=== PATIENT | female | born 1950 | race Caucasian/White ===

== ENCOUNTER 2016-08-13 08:19 | Day surgery (SDC) | payer MEDICARE, OTHER ==
[~2016-08-13] VITALS: Ht 160 cm; Wt 56.8 kg
[~2016-08-13 08:19] MED LIST: AMOX250C4 PO; CEFU250T87 PO; HYDR2 PO; LEVO100 PO; LIOT5 PO; LORazepam 2 MG/ML VIAL IVP ONE; MIRA50TA PO; TIZA4TAB4 PO; VALA500T38 PO
[2016-08-13] MEDS ORDERED: CeFAZolin 1 GM/DEXTROSE 50 ML IV ONE ×2 (08:52→11:30)
[2016-08-13] MEDS ORDERED: DEXTROSE 5%-0.45% SODIUM CHL 1,000 ML IV ONE ×2 (08:52→10:30)
[2016-08-13 09:13] LABS: EOSINOPHILS % (AUTO) 1.2 % (1.0-6.0); HEMATOCRIT 29.7 % (36-46); HEMOGLOBIN 9.5 g/dL (12.0-16.0); LYMPHOCYTES # (AUTO) 0.9 K/uL (1.0-4.8); LYMPHOCYTES % (AUTO) 7.1 % (22.0-44.0); MEAN CORPUSCULAR HEMOGLOBIN 27.3 pg (26.0-34.0); MEAN CORPUSCULAR VOLUME 85 fL (80-100); MONOCYTES % (AUTO) 7.7 % (2.0-9.0); NEUTROPHILS # (AUTO) 11.2 K/uL (1.8-7.7); PLATELET COUNT (AUTO) 389 K/uL (150-450); RED BLOOD CELL COUNT(AUTO) 3.48 MIL/uL (4.00-5.20); RED CELL DISTRIBUTION WIDTH 19.1 % (11.5-14.5); WHITE BLOOD COUNT (AUTO) 13.3 K/uL (4.5-11.0)
[2016-08-13 09:23] LABS: CALCIUM, TOTAL 10.2 mg/dL (8.8-10.5); CREATININE 1.16 mg/dL (0.60-1.30); POTASSIUM 4.5 mmol/L (3.5-5.1)
[2016-08-13 09:26] LABS: PROTHROMBIN TIME 10.4 SEC (9.4-11.6)
[2016-08-13] MEDS ORDERED: TIZA4TAB4 PO (09:28)
[2016-08-13] MEDS ORDERED: MIRA50TA PO (09:28)
[2016-08-13] MEDS ORDERED: OXYC-341 PO (09:28)
[2016-08-13] MEDS ORDERED: ROPI0.255 PO (09:28)
[2016-08-13] MEDS ORDERED: LORazepam 2 MG/ML VIAL ONE (12:34)
[2016-08-13] MEDS ORDERED: HEPARIN SODIUM 1000 UNITS/NS 500 ML ONE (14:05)
[2016-08-13] MEDS ORDERED: LIDOCAINE HCL/PF 1% 30 ML VIAL ONE (14:05)
[2016-08-13] MEDS ORDERED: MIDAZOLAM HCL 2 MG/2 ML VIAL ONE ×2 (14:05→15:40)
[2016-08-13] MEDS ORDERED: FentaNYL CITRATE-PF 100 MCG/2 ML VIAL ONE ×3 (14:05→15:40)
[2016-08-13] MEDS ORDERED: IODIXANOL 320 MG/ML 100 ML VIAL ONE (14:05)
[2016-08-13] MEDS ORDERED: IODIXANOL 320 MG/ML 50 ML VIAL ONE ×2 (14:49→15:22)
[2016-08-13] MEDS ORDERED: HYDROmorphone 2 MG/ML SYRINGE IVP ONE (15:45)
[2016-08-13] MEDS ORDERED: HYDROmorphone 2 MG/ML SYRINGE ONE (15:49)
[2016-08-13] MEDS ORDERED: MIDAZOLAM HCL 2 MG/2 ML VIAL IVP ONE (16:06)
[2016-08-13] MEDS ORDERED: FentaNYL CITRATE-PF 100 MCG/2 ML VIAL IVP ONE (16:06)
[2016-08-13] MEDS ORDERED: HYDROmorphone HCL 2 MG TABLET PO ONE (17:30)
[2016-09-10] MEDS ORDERED: LEVO100 PO (13:57)
[2016-09-10] MEDS ORDERED: HYDR2 PO (13:57)
[2016-09-10] MEDS ORDERED: CEFU250T87 PO (13:57)
[2016-09-10] MEDS ORDERED: LIOT5 PO (13:57)
[2016-09-10] MEDS ORDERED: AMOX250C4 PO (13:57)
[2016-09-10] MEDS ORDERED: VALA500T38 PO (13:57)
== END 2016-08-13 18:15 | disposition home or self-care (01) ==
LOC: SDS 08:19
PROVIDERS: ATTEND Radiology Diagnostic Radiology
DX: C67.9 Malignant neoplasm of bladder, unspecified (principal); Z88.8 Allergy status to other drugs, medicaments and biological substances; Z98.890 Other specified postprocedural states; Z96.89 Presence of other specified functional implants
CPT/HCPCS: 36247; 36415; 37243; 75736; 80048; 85025; 85610; 93005; C1760; C1769 ×2; C1887 ×3; C1892; J0690; J1170; J1644; J2060; J2250; J3010; J3490; Q9967 ×2; 36245; 75774; 77001

== ENCOUNTER 2016-08-15 06:18 | Day surgery (SDC) | payer MEDICARE, OTHER ==
[~2016-08-15] VITALS: Ht 160 cm; Wt 57.7 kg
[~2016-08-15 06:18] MED LIST changes: -AMOX250C4 PO; -CEFU250T87 PO; +FentaNYL CITRATE-PF 100 MCG/2 ML VIAL IVP ONE; -HYDR2 PO; +KETAMINE HCL 50 MG/ML 10 ML VIAL IVP ONE; -LEVO100 PO; +LIDOCAINE HCL/PF 2% 5 ML VIAL IM ONE; -LIOT5 PO; -LORazepam 2 MG/ML VIAL IVP ONE; +MIDAZOLAM HCL 2 MG/2 ML VIAL IVP ONE; +OXYC-341 PO; +ROPI0.255 PO; -VALA500T38 PO
[2016-08-15] MEDS ORDERED: DEXTROSE 5%-0.45% SODIUM CHL 1,000 ML IV ONE ×2 (06:29→06:30)
[2016-08-15] MEDS ORDERED: CeFAZolin 1 GM/DEXTROSE 50 ML IV ONE ×2 (06:30→07:29)
[2016-08-15] MEDS ORDERED: DEXTROSE 5%-0.45% SODIUM CHL 1,000 ML IV SCH (06:30)
[2016-08-15] MEDS ORDERED: LORazepam 2 MG/ML VIAL IVP ONE (06:30)
[2016-08-15] MEDS ORDERED: IOVERSOL 350 MG/ML 100 ML VIAL ONE (08:39)
[2016-08-15] MEDS ORDERED: SODIUM CHLORIDE 0.9% 100 ML ONE (08:39)
[2016-08-15] MEDS ORDERED: LIDOCAINE HCL/PF 1% 30 ML VIAL ONE (08:59)
[2016-08-15] MEDS ORDERED: HYDROmorphone HCL 2 MG TABLET PO ONE (11:15)
[2016-08-15] MEDS ORDERED: PROMETHAZINE HCL 25 MG TABLET PO ONE (11:15)
[2016-08-15] MEDS ORDERED: SODIUM CHLORIDE 0.9% 1,000 ML IV ONE (11:15)
[2016-08-15] MEDS ORDERED: NEOMYCIN/BACITRACIN/POLYMYXIN B OINTMENT PACKET TP ONE (14:00)
[2016-09-10] MEDS ORDERED: VALA500T38 PO (13:57)
[2016-09-10] MEDS ORDERED: LEVO100 PO (13:57)
[2016-09-10] MEDS ORDERED: LIOT5 PO (13:57)
[2016-09-10] MEDS ORDERED: CEFU250T87 PO (13:57)
[2016-09-10] MEDS ORDERED: AMOX250C4 PO (13:57)
[2016-09-10] MEDS ORDERED: HYDR2 PO (13:57)
== END 2016-08-15 14:15 | disposition home or self-care (01) ==
LOC: SDS 06:18 → EDSTATUS 08:00 → EDUNIT# 08:00 → SDS 14:15
PROVIDERS: ATTEND Radiology Diagnostic Radiology
DX: C76.3 Malignant neoplasm of pelvis (principal); C67.9 Malignant neoplasm of bladder, unspecified; D64.9 Anemia, unspecified; G89.29 Other chronic pain; F41.9 Anxiety disorder, unspecified; E03.9 Hypothyroidism, unspecified; Z72.89 Other problems related to lifestyle; Z88.0 Allergy status to penicillin; Z98.890 Other specified postprocedural states; Z96.89 Presence of other specified functional implants
CPT/HCPCS: 20983; J0690; J2250; J3010; J3490 ×3; J7050; Q9967; 72192; 76942; 77012

== ENCOUNTER 2016-09-11 05:54 | Day surgery (SDC) | payer MEDICARE, OTHER ==
[~2016-09-11] VITALS: Ht 157.5 cm; Wt 54.5 kg
[~2016-09-11 05:54] MED LIST changes: +AMOX250C4 PO; +CEFU250T87 PO; +HYDR2 PO; +LEVO100 PO; -LIDOCAINE HCL/PF 2% 5 ML VIAL IM ONE; +LIOT5 PO; -OXYC-341 PO; +VALA500T38 PO
[2016-09-11] MEDS ORDERED: SODIUM CHLORIDE 0.9% 1,000 ML IV ONE ×3 (06:09→10:30)
[2016-09-11] MEDS ORDERED: CeFAZolin 1 GM/DEXTROSE 50 ML IV ONE ×2 (06:09→08:00)
[2016-09-11] MEDS ORDERED: LORazepam 2 MG/ML VIAL IVP ONE (06:30)
[2016-09-11 06:57] LABS: BASOPHILS % (AUTO) 0.2 % (0.0-2.0); EOSINOPHILS % (AUTO) 1.1 % (1.0-6.0); HEMATOCRIT 25.6 % (36-46); LYMPHOCYTES % (AUTO) 13.5 % (22.0-44.0); MEAN CORPUSCULAR HEMOGLOBIN 26.9 pg (26.0-34.0); MEAN CORPUSCULAR HGB CONC 31.1 G/dL (31.0-37.0); MEAN CORPUSCULAR VOLUME 87 fL (80-100); MONOCYTES # (AUTO) 0.5 K/uL (0.1-1.0); MONOCYTES % (AUTO) 6.4 % (2.0-9.0); NEUTROPHILS # (AUTO) 5.8 K/uL (1.8-7.7); NEUTROPHILS % (AUTO) 78.8 % (40.0-70.0); PLATELET COUNT (AUTO) 260 K/uL (150-450); RED BLOOD CELL COUNT(AUTO) 2.96 MIL/uL (4.00-5.20); RED CELL DISTRIBUTION WIDTH 20.6 % (11.5-14.5); WHITE BLOOD COUNT (AUTO) 7.4 K/uL (4.5-11.0)
[2016-09-11] MEDS ORDERED: LORazepam 2 MG/ML VIAL ONE (07:06)
[2016-09-11 07:07] LABS: CALCIUM, TOTAL 8.3 mg/dL (8.8-10.5); CREATININE 1.03 mg/dL (0.60-1.30); POTASSIUM 4.3 mmol/L (3.5-5.1)
[2016-09-11 07:10] LABS: PROTHROMBIN TIME 10.2 SEC (9.4-11.6)
[2016-09-11] MEDS ORDERED: LIDOCAINE HCL/PF 1% 30 ML VIAL ONE (08:04)
[2016-09-11] MEDS ORDERED: SODIUM CHLORIDE 0.9% 100 ML ONE (08:34)
[2016-09-11] MEDS ORDERED: IOVERSOL 350 MG/ML 100 ML VIAL ONE (08:34)
[2016-09-11 09:58] LABS: RBC MORPHOLOGY COMMENT ABNORMAL RBC MORPH
[2016-09-11] MEDS ORDERED: HYDROmorphone 2 MG/ML SYRINGE IVP PRN (10:15)
[2016-09-11] MEDS ORDERED: MEPERIDINE-PF 25 MG/ML SYRINGE IVP PRN (10:15)
[2016-09-11] MEDS ORDERED: FentaNYL CITRATE-PF 100 MCG/2 ML VIAL IVP PRN (10:15)
[2016-09-11] MEDS ORDERED: HYDROmorphone 2 MG/ML SYRINGE IVP ONE (10:30)
[2016-09-11] MEDS ORDERED: PROMETHAZINE HCL 25 MG TABLET PO ONE (10:30)
[2016-09-11] MEDS ORDERED: HYDROmorphone HCL 2 MG TABLET PO ONE (12:30)
[2016-09-11] MEDS ORDERED: HYDROmorphone HCL 2 MG TABLET ONE (12:52)
[2016-09-11] MEDS ORDERED: OXYGEN THERAPY IH SCH (20:00)
== END 2016-09-11 14:00 | disposition home or self-care (01) ==
LOC: SDS 05:54 → EDSTATUS 08:00 → SDS 14:00
PROVIDERS: ATTEND Radiology Diagnostic Radiology
DX: C76.3 Malignant neoplasm of pelvis (principal); C67.9 Malignant neoplasm of bladder, unspecified; N13.30 Unspecified hydronephrosis; E03.9 Hypothyroidism, unspecified; Z98.890 Other specified postprocedural states; Z85.3 Personal history of malignant neoplasm of breast; Z72.89 Other problems related to lifestyle; Z88.8 Allergy status to other drugs, medicaments and biological substances
CPT/HCPCS: 20983; 36415; 80048; 85025; 85610; C2618; J0690; J2060; J2250; J3010; J3490; J7030; J7050; Q9967; 77012

== ENCOUNTER 2016-10-03 05:49 | Day surgery (SDC) | payer MEDICARE, OTHER ==
[~2016-10-03] VITALS: Ht 157.5 cm; Wt 53.2 kg
[~2016-10-03 05:49] MED LIST changes: -FentaNYL CITRATE-PF 100 MCG/2 ML VIAL IVP ONE; -KETAMINE HCL 50 MG/ML 10 ML VIAL IVP ONE; -MIDAZOLAM HCL 2 MG/2 ML VIAL IVP ONE
[2016-10-03] MEDS ORDERED: LORazepam 2 MG/ML VIAL IVP ONE (06:00)
[2016-10-03] MEDS ORDERED: SODIUM CHLORIDE 0.9% 1,000 ML IV ONE ×5 (06:00→15:00)
[2016-10-03] MEDS ORDERED: CeFAZolin 1 GM/DEXTROSE 50 ML IV ONE (06:09)
[2016-10-03 07:11] LABS: INR 0.9 (0.9-1.1)
[2016-10-03 07:15] LABS: CALCIUM, TOTAL 9.1 mg/dL (8.8-10.5); CREATININE 1.09 mg/dL (0.60-1.30); POTASSIUM 4.6 mmol/L (3.5-5.1)
[2016-10-03 07:30] LABS: BASOPHILS # (AUTO) 0.02 K/uL (0.00-0.20); BASOPHILS % (AUTO) 0.3 % (0.0-2.0); EOSINOPHILS # (AUTO) 0.06 K/uL (0.00-0.70); EOSINOPHILS % (AUTO) 0.97 % (1.0-6.0); HEMOGLOBIN 11.1 g/dL (12.0-16.0); LYMPHOCYTES # (AUTO) 1.2 K/uL (1.0-4.8); LYMPHOCYTES % (AUTO) 18.3 % (22.0-44.0); MEAN CORPUSCULAR HEMOGLOBIN 28.6 pg (26.0-34.0); MEAN CORPUSCULAR HGB CONC 32.5 G/dL (31.0-37.0); MEAN CORPUSCULAR VOLUME 88 fL (80-100); MONOCYTES # (AUTO) 0.6 K/uL (0.1-1.0); MONOCYTES % (AUTO) 8.8 % (2.0-9.0); NEUTROPHILS # (AUTO) 4.6 K/uL (1.8-7.7); NEUTROPHILS % (AUTO) 71.6 % (40.0-70.0); PLATELET COUNT (AUTO) 249 K/uL (150-450); RED BLOOD CELL COUNT(AUTO) 3.87 MIL/uL (4.00-5.20); RED CELL DISTRIBUTION WIDTH 20.9 % (11.5-14.5); WHITE BLOOD COUNT (AUTO) 6.4 K/uL (4.5-11.0)
[2016-10-03] MEDS ORDERED: IOVERSOL 320 MG/ML 100 ML VIAL ONE (08:57)
[2016-10-03] MEDS ORDERED: SODIUM CHLORIDE 0.9% 100 ML ONE (08:57)
[2016-10-03] MEDS ORDERED: SODIUM BICARBONATE 50 MEQ/50 ML VIAL ONE (11:38)
[2016-10-03] MEDS ORDERED: IODIXANOL 320 MG/ML 100 ML VIAL ONE (11:38)
[2016-10-03] MEDS ORDERED: HEPARIN SODIUM 1000 UNITS/NS 500 ML ONE (11:38)
[2016-10-03] MEDS ORDERED: LIDOCAINE HCL/PF 1% 30 ML VIAL ONE (11:38)
[2016-10-03 11:51] VITALS: BP 90/59
[2016-10-03] MEDS ORDERED: HEPARIN SODIUM,PORCINE 1,000 UNITS/ML 10 ML VIAL IVP ONE (12:00)
[2016-10-03] MEDS ORDERED: KETOROLAC TROMETHAMINE 60 MG/2 ML VIAL IM ONE (12:00)
[2016-10-03] MEDS ORDERED: ONDANSETRON HCL 4 MG/2 ML VIAL IVP ONE (12:00)
[2016-10-03] MEDS ORDERED: MIDAZOLAM HCL 2 MG/2 ML VIAL IVP ONE (12:00)
[2016-10-03] MEDS ORDERED: DEXAMETHASONE SOD PHOS 4 MG/ML VIAL IVP ONE (12:00)
[2016-10-03] MEDS ORDERED: PHENYLEPHRINE HCL 10 MG/ML VIAL IVP ONE (12:00)
[2016-10-03] MEDS ORDERED: FentaNYL CITRATE-PF 100 MCG/2 ML VIAL IVP ONE (12:00)
[2016-10-03] MEDS ORDERED: ALTEPLASE 2 MG/VIAL IVCATH ONE (12:15)
[2016-10-03] MEDS ORDERED: IODIXANOL 320 MG/ML 100 ML VIAL IVP ONE (13:00)
[2016-10-03] MEDS ORDERED: LIDOCAINE 1% 30 ML/SOD BICARB 8.4% 4 ML SQ ONE (13:00)
[2016-10-03] MEDS ORDERED: IODIXANOL 320 MG/ML 50 ML VIAL ONE (13:51)
[2016-10-03 14:06] VITALS: BP 140/85
[2016-10-03] MEDS ORDERED: FentaNYL CITRATE-PF 100 MCG/2 ML VIAL IVP PRN ×2 (14:45)
[2016-10-03] MEDS ORDERED: MEPERIDINE-PF 25 MG/ML SYRINGE IVP PRN (14:45)
[2016-10-03] MEDS ORDERED: HYDROmorphone 2 MG/ML SYRINGE IVP PRN (14:45)
[2016-10-03] MEDS ORDERED: APIXABAN 5 MG TABLET PO ONE (15:00)
[2016-10-03] MEDS ORDERED: HYDROmorphone HCL 2 MG TABLET PO ONE (15:00)
[2016-10-03] MEDS ORDERED: HYDROmorphone HCL 2 MG TABLET ONE (16:10)
== END 2016-10-03 18:30 | disposition home or self-care (01) ==
LOC: SDS 05:49 → EDSTATUS 08:00 → SDS 18:30
PROVIDERS: ATTEND Radiology Diagnostic Radiology
DX: R19.00 Intra-abdominal and pelvic swelling, mass and lump, unspecified site (principal); I10 Essential (primary) hypertension
CPT/HCPCS: 20983; 36415; 37187; 37238; 37239; 72193; 75820; 80048; 85025; 85610; 93005; C1769 ×3; C1874 ×2; C1892 ×2; C2618; J0690; J1100; J1644 ×2; J1885; J2250; J2370; J2405; J2997; J3010; J3490 ×2; J7030; J7050; Q9967 ×3; 75710; 76942